=== PATIENT | female | born 1955 | race Caucasian/White ===

== ENCOUNTER 2018-06-26 12:54 | Observation (INO) | payer BC ==
[~2018-06-26] VITALS: Ht 162.6 cm; Wt 81.7 kg
[2018-06-26 13:04] VITALS: BP 138/70
[2018-06-26] MEDS ORDERED: LIPITOR80 MG PO (13:08)
[2018-06-26] MEDS ORDERED: COZAAR 25 MG TA25 M1 PO (13:08)
[2018-06-26] MEDS ORDERED: HYDROCHLOROTH12.5 M1 PO (13:08)
[2018-06-26] MEDS ORDERED: PLAVIX 75 MG TA75 M1 PO (13:09)
[2018-06-26] MEDS ORDERED: ASPIRIN81 M2 PO (13:09)
[2018-06-26] MEDS ORDERED: NORVASC 5 MG TAB5 MG PO (13:09)
[2018-06-26 13:28] LABS: ABSOLUTE BASOPHILS 0.1 thou/uL (0.0-0.2); ABSOLUTE EOSINOPHILS 0.1 thou/uL (0.0-0.7); ABSOLUTE MONOCYTES 0.6 thou/uL (0.0-1.2); ABSOLUTE NEUTROPHILS 4.5 thou/uL (1.6-8.1); BASOPHILS 1.3 %; EOSINOPHILS 1.1 %; HEMATOCRIT 41.4 % (37.0-47.0); HEMOGLOBIN 14.2 gm/dL (12.0-15.0); LYMPHOCYTES 35.8 %; MCH 30.5 pg (26.0-34.0); MCHC 34.2 g/dL (28.0-37.0); MCV 89.3 fL (80.0-100.0); MONOCYTES 7.8 %; MPV 7.2 fl. (7.2-11.1); NUCLEATED RBCS 0 /100WBC; PLATELET COUNT* 350 thou/uL (150-400); RBC 4.64 mil/uL (4.20-5.00); RDW-CV 12.9 % (10.5-14.5); WBC 8.3 thou/uL (4.0-11.0)
[2018-06-26 14:07] LABS: ANION GAP 11 mmol/L (7-16); BUN 20 mg/dL (7-18); CALCIUM 8.5 mg/dL (8.5-10.1); CHLORIDE 102 mmol/L (98-107); CO2 25 mmol/L (21-32); GLUCOSE 100 mg/dL (70-99); POTASSIUM 3.5 mmol/L (3.5-5.1); SODIUM 138 mmol/L (136-145)
[2018-06-26 14:18] LABS: ALBUMIN 3.5 g/dL (3.4-5.0); ALKALINE PHOSPHATASE 161 U/L (46-116); NT-PRO BRAIN NAT PEPTIDE 58 pg/mL (<300); SGOT 27 U/L (15-37); SGPT 26 U/L (30-65); TOTAL BILIRUBIN 0.3 mg/dL (<0.1-1.0); TOTAL PROTEIN 7.2 g/dL (6.4-8.2); TROPONIN-I LEVEL <0.06 ng/mL (<0.06)
--- NOTE | 2018-06-26 15:15 | EKG ---
[place] [address] ELECTROCARDIOGRAM REPORT Name: KENY PARKER Room: [facility]#: [id number] Admission: 06/26/18 Attend Phys: Discharge: Date of : 53 Report #: [id number] THIS REPORT FOR: //name// [facility] ED Test Date: 2018-06-26 Test Time: 13:06:12 Pat Name: KENY PARKER Department: Room: Gender: F Management Technician: Lashay BEARD : 1955 Requested By: Rufina Mcdonough Order Number: [id number] MD: Ryland Galan Measurements Intervals [place] Rate: 69 P: 77 [place]: 141 QRS: 52 QRSD: 87 T: 45 QT: 383 QTc: 411 Interpretive Statements Sinus rhythm Ventricular bigeminy Left atrial enlargement Probable anteroseptal infarct, old Minimal ST depression, lateral leads Baseline wander in lead(s) II,III,aVF No previous ECG available for comparison Electronically Signed On 06-26-2018 15:14:57 CDT by Ryland Galan [email or web address] <ELECTRONICALLY SIGNED> By: Ryland Galan MD, [facility] 06/26/18 1514 1306 [id number] Ryland Galan MD, [facility] /EPI
[2018-06-26 17:54] VITALS: BP 128/55
[2018-06-26 18:00] VITALS: BP 110/53
[2018-06-26 20:15] VITALS: BP 128/52
[2018-06-27] VITALS: BP 124/37
[2018-06-27 04:00] VITALS: BP 128/52
[2018-06-27 08:00] VITALS: BP 117/60
[2018-06-27 10:11] LABS: CHOLESTEROL 163 mg/dL (<200); HDL CHOLESTEROL 32 mg/dL (>40); LDL CHOLESTEROL 113 mg/dL (<100); TC:HDL 5.1 Ratio (Not establshd); TRIGLYCERIDE 91 mg/dL (<150); VLDL 18 mg/dL (<40)
[2018-06-27 10:33] LABS: SERUM ASSESSMENT Clear
[2018-06-27 11:39] VITALS: BP 125/57
--- NOTE | 2018-06-27 13:39 | CON ---
[address] [address] CONSULTATION Name: KEITHKENY M Room: [address] Nawaf Nuñez#: [id number] Admission: 06/26/18 Attend Phys: Darnell Flores MD Discharge: 06/27/18 Date of : 53 Report #: [id number] THIS REPORT FOR: //name// CC: DO Darnell Raza DO DATE OF SERVICE: 06/27/2018 INDICATION: Chest pain. HISTORY OF PRESENT ILLNESS: The patient is a very pleasant 62-year-old white female with history of peripheral vascular disease, status post iliofemoral bypass. She has carotid vascular disease without prior carotid intervention. She reports a history of coronary artery disease with an occluded coronary artery. She has not had any coronary intervention. She is not having claudication. She is not having any TIA or stroke-like activity. She is on Plavix chronically. She presented to the Emergency Room yesterday with complaints of right-sided shoulder, neck and jaw pain that have been ongoing for over a day and a half. The pain is constantly present with intermittent exacerbations that does not seem to be associated with activity. She denies orthopnea or paroxysmal nocturnal dyspnea. She has mild dyspnea on exertion. She is without other cardiac complaint. She denies palpitations. PAST MEDICAL HISTORY: 1. Coronary artery disease. 2. Carotid vascular disease, moderate in nature. 3. Peripheral vascular disease with previous bypass. 4. Chronic tobacco use. 5. Hypertension. 6. Hyperlipidemia. HOME MEDICATIONS: Amlodipine 5 mg daily, aspirin 81 mg daily, atorvastatin 80 mg daily, Plavix 75 mg daily, hydrochlorothiazide 12.5 mg daily, losartan 25 mg daily. PAST SURGICAL HISTORY: 1. Peripheral vascular disease with iliac stenting. 2. Right kidney surgery. SOCIAL HISTORY: She smokes a pack of cigarettes daily. She does [place] [address] CONSULTATION Name: KENY PARKER Room: [address]#: [id number] Admission: 06/26/18 Attend Phys: Darnell Flores MD Discharge: 06/27/18 Date of : 53 Report #: [id number] FAMILY HISTORY: Noncontributory. REVIEW OF SYSTEMS: NEUROLOGIC: She denies convulsions, seizures or focal paralysis. GENERAL: There is no unexplained weight loss or fevers. RESPIRATORY: She has a cough that is nonproductive. CARDIAC: As outlined above. GASTROINTESTINAL: Some nausea without vomiting, hematemesis, melena, or hematochezia. GENITOURINARY: No dysuria or hematuria. HEMATOLOGIC AND LYMPHATIC: No history of anemia, bleeding disorder, cancer, or blood clots. ALLERGY AND IMMUNOLOGIC: No significant allergies. PSYCHIATRIC: She denies depression or anxiety. MUSCULOSKELETAL: Some arthritis without connective tissue disease. SKIN: No recent rashes, hives or chronic skin conditions. EYES: No acute loss in vision. EARS, NOSE, MOUTH, AND THROAT: She denies decreased hearing or epistaxis. ENDOCRINE: She denies diabetes or thyroid disease. PHYSICAL EXAMINATION: VITAL SIGNS: Stable. Blood pressure 138/70, pulse 71 and regular. GENERAL: This pleasant lady, in no distress. Mood and affect appropriate. HEENT: Extraocular muscles intact. Mucous membranes are moist. NECK: Shows no jugular venous distention. There are no carotid bruits. CHEST: Reveals clear lung chung without wheezes or rales. CARDIAC: Reveals regular rhythm without gallop or murmur. ABDOMEN: Reveals normal bowel sounds. The abdomen is soft, nontender. EXTREMITIES: Show no edema. SKIN: Warm and dry. 12-lead EKG shows sinus rhythm without acute ST or T-wave abnormality. Labs are reviewed. Electrolytes within normal limits. BUN 20, creatinine 1.0. Serum glucose 100. LFTs within normal limits with the exception of alkaline phosphatase mildly elevated at 161. Troponins are less than 0.06 on 4 separate occasions. CBC is within normal limits. IMPRESSION AND RECOMMENDATIONS: 1. Atypical discomfort in patient with known coronary artery disease. We will proceed with noninvasive stress testing at this time. Further intervention will be pending the results of that study. Continue daily Plavix. 2. Hyperlipidemia. Obtain fasting lipid profile at this time. 3. Chronic tobacco use. Smoking cessation discussed. The patient is not interested in cessation at this time. 4. Peripheral vascular disease, apparently stable. [place] [address] CONSULTATION Name: KENY PARKER Room: [address] Nawaf Nuñez#: [id number] Admission: 06/26/18 Attend Phys: Darnell Flores MD Discharge: 06/27/18 Date of : 53 Report #: [id number] claudication. 5. Carotid vascular disease. Follows with Vascular Surgery. <ELECTRONICALLY SIGNED> By: Jason Lynch MD, FACWesley 06/27/18 1339 0844 [id number] Lynch MD, KJ /nt
--- NOTE | 2018-06-27 14:50 | EKG ---
[place] [address] ELECTROCARDIOGRAM REPORT Name: KENY PARKER Room: [address]#: [id number] Admission: 06/26/18 Attend Phys: Darnell Flores MD Discharge: 06/27/18 Date of : 53 Report #: [id number] THIS REPORT FOR: //name// [facility] ED Test Date: 2018-06-26 Test Time: 15:46:30 Pat Name: KENY PARKER Department: Room: [facility] Gender: F Marketing/Sales Person: Lashay BEARD : 1955 Requested By: Rufina Mcdonough Order Number: [id number] MD: Jason Lynch Measurements Intervals [place] Rate: 60 P: 68 [place]: 149 QRS: 34 QRSD: 87 T: 38 QT: 444 QTc: 444 Interpretive Statements Sinus rhythm Left atrial enlargement, possible Minimal ST depression, inferior leads Compared to ECG 06/26/2018 13:06:12 Ventricular premature complex(es) no longer present Myocardial infarct finding no longer present ST (T wave) deviation still present Electronically Signed On 06-27-2018 14:49:58 CDT by Jason Lynch [email or web address] <ELECTRONICALLY SIGNED> By: Jason Lynch MD, FACC 06/27/18 1449 1546 1546 Jason Lynch MD, FAC /EPI
== END 2018-06-27 13:20 | disposition left against medical advice (07) ==
LOC: M.ERS 12:54 → M.TBA-ER 15:32 → M.2W 15:32
PROVIDERS: Internal Medicine Cardiovascular Disease; Nurse Practitioner Family; ADMIT Internal Medicine
DX: M25.511 Pain in right shoulder (principal); M54.2 Cervicalgia; I25.110 Atherosclerotic heart disease of native coronary artery with unstable angina pectoris; I10 Essential (primary) hypertension; E78.5 Hyperlipidemia, unspecified; I73.9 Peripheral vascular disease, unspecified; I65.29 Occlusion and stenosis of unspecified carotid artery; F17.210 Nicotine dependence, cigarettes, uncomplicated; R68.84 Jaw pain; Z95.820 Peripheral vascular angioplasty status with implants and grafts; Z91.19 Patient's noncompliance with other medical treatment and regimen; Z98.890 Other specified postprocedural states